=== PATIENT | male | born 1950 | race Caucasian/White ===

== ENCOUNTER 2019-06-11 07:45 | Outpatient (CLI) | payer MEDICARE, SELFPAY ==
--- NOTE | ~2019-06-11 | CT_ITS ---
EXAMINATION: CT lung screening EXAM DATE: 06/11/2019 08:36 INDICATION: Personal history of nicotine dependence. TECHNIQUE: Spiral low dose CT of the chest without contrast. Axial, coronal and sagittal images were reviewed. The dose-length product (DLP) for this examination was 254.22 mGy-cm. The exposure was t ailored according to patient size (auto mA exposure control), and iterative reconstruction (ASIR) was used as additional dose reduction technique. There is no prior study for comparison. FINDINGS: Right upper lobe 3 mm pleural-based triangular-shaped nodule, image 27. Tracheobronchial tree is patent. There is no mediastinal, hilar or axillary lymphadenopathy. There are no pleural or pericardial effusions. There is no pneumothorax. Heart normal in size. There is mild coronar y arterial calcification, arterial sclerosis. Azygos fissure. Cholelithiasis. There is thoracic sp ondylosis without osteoblastic or osteolytic lesions identified. IMPRESSION: Lung-RADS category 2, benign appearance or behavior (<1% chance of malignancy); recommend continued LDCT screening in 1 year. Reviewed, dictated and finalized at location B. ORATE SCHEDULER
--- NOTE | ~2019-06-11 | CT_ITS ---
EXAMINATION: CT soft tissue neck w con DATE: 06/11/2019 08:34 INDICATION: Base of tongue lesion. TECHNIQUE: Computed tomography (CT) of the neck was performed with 75 mL Omnipaque-350 intravenous co ntrast. Automated exposure control and iterative reconstruction technique were employed. The dose-myron gth product was 574.90 mGy-cm. COMPARISON: Neck CT 08/28/2017 FINDINGS: There is a 4 mm nodule in right lung upper lobe, likely benign. There is a 9 mm rim-enhanci ng mass in right lingual tonsil. There are no pathologically enlarged lymph nodes. There is mild plaq ue in the proximal internal carotid arteries with 0% stenosis relative to normal distal artery lumen diameters. There is mild mucosal thickening in the paranasal sinuses. The mastoid air cells are hilario l. There is mild cervical spondylosis. IMPRESSION: 1. 9 mm ring-enhancing mass in the right lingual tonsil, stable from 08/28/2017, likely benign. Reviewed, dictated and finalized at location A. ROPATHIC PHYSICIAN
== END 2019-06-11 07:46 | disposition home or self-care (01) ==
LOC: CHSIMG 07:48
PROVIDERS: PCP Internal Medicine; Visit Provider Internal Medicine
DX: Z12.2 Encounter for screening for malignant neoplasm of respiratory organs (principal); Z87.891 Personal history of nicotine dependence; K13.79 Other lesions of oral mucosa
CPT/HCPCS: 70491; G0297; Q9965

== ENCOUNTER 2019-07-02 15:24 | Outpatient (CLI) | payer MEDICARE, SELFPAY ==
--- NOTE | ~2019-07-02 | MR_ITS ---
EXAMINATION: MR lumbar spine wo con EXAM DATE: 07/02/2019 16:08 INDICATION: Low back pain into left buttock and leg with burning numbness and tingling. TECHNIQUE: Multi-sequential, multiplanar MR images of the lumbar spine were obtained without contrast . Sagittal T1, T2, T2 fat saturation images. Axial T2 weighted images. There is no prior study for comparison. FINDINGS: There is mild disc disease from L2-S1. There is 2 mm anterolisthesis of L4 on L5. The verte bral bodies are otherwise aligned. The vertebral body and disc heights are otherwise well maintained. The conus medullaris terminates at the T12-L1 level and has normal signal intensity and morphology. There are no suspicious marrow signal abnormalities. Paraspinal soft tissue is unremarkable. Level by level evaluation: L1-L2: Disc does not extend beyond the endplate margin. Facet arthropathy: Mild. Neural foraminal stenosis: No stenosis. Central canal stenosis: No stenosis. L2-L3: There is a minimal diffuse disc bulge. Facet arthropathy: Minimal. Neural foraminal stenosis: No stenosis. Central canal stenosis: No stenosis. L3-L4: There is a mild diffuse disc bulge. Facet arthropathy: Mild to moderate. Neural foraminal stenosis: No stenosis. Central canal stenosis: Mild. L4-L5: There is a mild to moderate diffuse disc bulge. Facet arthropathy: Moderate to severe . Ligamentum flavum enlargement. Neural foraminal stenosis: Mild bilateral. Central canal stenosis: Severe. L5-S1: There is a mild diffuse disc bulge. Facet arthropathy: Moderate right, mild to moderate left. Neural foraminal stenosis: No stenosis. Central canal stenosis: No stenosis. IMPRESSION: 1. L4-5 severe central canal stenosis. 2. Otherwise mild to moderate lumbar spondylosis. Reviewed, dictated and finalized at location A. L EXAMINER
== END 2019-07-02 15:25 | disposition home or self-care (01) ==
LOC: CHSIMG 15:26
PROVIDERS: PCP Internal Medicine; Visit Provider Orthopaedic Surgery
DX: M54.9 Dorsalgia, unspecified (principal)
CPT/HCPCS: 72148

== ENCOUNTER 2020-01-29 09:05 | Outpatient (CLI) | payer MEDICARE, SELFPAY ==
--- NOTE | ~2020-01-29 | CT_ITS ---
EXAMINATION: CT soft tissue neck w con DATE: 01/29/2020 09:46 INDICATION: Tonsillar mass. TECHNIQUE: Computed tomography (CT) of the neck was performed with 75 mL Omnipaque-350 intravenous co ntrast. Automated exposure control and iterative reconstruction technique were employed. The dose-myron gth product was 582.68 mGy-cm. COMPARISON: CT neck 06/11/2019, 08/28/2017 FINDINGS: There is mild scarring at the lung apices. There is a 9 mm ring-enhancing mass in the right lingual tonsil, stable from 08/28/2017. There are no pathologically enlarged lymph nodes. There is arnaldo que in the proximal internal carotid arteries with 0% stenosis relative to normal distal artery lumen diameters. There is moderate cervical spondylosis. IMPRESSION: 1. 9 mm ring-enhancing mass in the right lingual tonsil, stable from 08/28/2017, likely benign. Reviewed, dictated and finalized at location A.
[2020-01-29 09:25] LABS: Estimated Glomerular Filt Rate > 60
== END 2020-01-29 09:06 | disposition home or self-care (01) ==
LOC: CHSIMG 09:07
PROVIDERS: PCP Internal Medicine; Visit Provider Otolaryngology
DX: J35.8 Other chronic diseases of tonsils and adenoids (principal)
CPT/HCPCS: 70491; Q9965

== ENCOUNTER 2020-06-03 07:47 | Outpatient (CLI) | payer MEDICARE, SELFPAY ==
[2020-06-03 08:00] LABS: Appearance Urine Clear (Clear); Bilirubin Urine Negative (Negative); Color Urine Yellow (Yellow); Glucose Urine UA Negative (Negative); Ketones Urine Negative (Negative); Leukocyte Esterase Ur Negative (Negative); Nitrate Urine Negative (Negative); Protein Urine Negative (Negative); Specific Grav Ur >= 1.030 (1.010-1.020); Urobilinogen Urine 0.2 mg/dL (0.2-1.0); pH Urine 5.5 (5.0-8.0)
[2020-06-03 08:07] LABS: Add Urine Microscopic? YES; Bacteria Urine 1+ /hpf; Blood Urine Trace-Intact (Negative); Mucus Urine Heavy /lpf; Squamous Epithelial Cell Urine Occasional /hpf (Few); WBC Urine 0-3 /hpf (0-3)
[2020-06-03 09:11] LABS: Alanine Aminotransferase 21 U/L (16-63); Albumin Level 3.5 g/dL (3.4-5.0); Alkaline Phosphatase 74 U/L (46-116); Anion Gap 11 mmol/L (8-16); Aspartate Amino Transferase 15 U/L (15-37); Bilirubin,Total 0.5 mg/dL (0.00-1.00); Blood Urea Nitrogen 13 mg/dL (7-18); Carbon Dioxide 30 mmol/L (21-32); Chloride 105 mmol/L (98-108); Cholesterol 184 mg/dL (0-200); Creatine Kinase 48 U/L (39-308); Estimated Glomerular Filt Rate > 60; Glucose 89 mg/dL (70-99); HDL Direct 50 mg/dL (40-60); LDL Cholesterol Calculated 116 mg/dL (<130); Osmolality Calculated 301 mOsm/kg (285-295); Potassium 4.2 mmol/L (3.5-5.1); Prostate Specific Antigen 3.5 ng/mL (< OR = 4.0); Sodium 146 mmol/L (136-145); Total Protein 6.7 g/dL (6.4-8.2); Triglycerides 89 mg/dL (0-150)
[2020-06-03 09:14] LABS: Hemoglobin A1C 5.2 % (<5.7)
== END 2020-06-03 07:48 | disposition home or self-care (01) ==
PROVIDERS: PCP Internal Medicine; Visit Provider Internal Medicine
DX: E78.2 Mixed hyperlipidemia (principal); I10 Essential (primary) hypertension; R73.01 Impaired fasting glucose; R31.21 Asymptomatic microscopic hematuria; Z12.5 Encounter for screening for malignant neoplasm of prostate
CPT/HCPCS: 36415; 80053; 80061; 81001; 82550; 83036; 84153; G0103

== ENCOUNTER 2020-06-10 07:50 | Outpatient (CLI) | payer MEDICARE, SELFPAY ==
--- NOTE | ~2020-06-10 | CT_ITS ---
EXAMINATION: CT soft tissue neck w con DATE: 06/10/2020 09:33 INDICATION: Burning tonsillar pain. TECHNIQUE: Computed tomography (CT) of the neck was performed with 75 mL Omnipaque-350 intravenous co ntrast. Automated exposure control and iterative reconstruction technique were employed. The dose-myron gth product was 578.25 mGy-cm. COMPARISON: Neck CT 01/29/2020 FINDINGS: There is mild scarring at the lung apices. There are no pathologically enlarged lymph nodes . There is mild mucosal thickening in the paranasal sinuses. The mastoid air cells are normal. The ph aryngeal mucosal space is unremarkable. There is moderate cervical spondylosis. IMPRESSION: 1. No etiology for the patient's symptoms. Reviewed, dictated and finalized at location A. AND SIZER
--- NOTE | ~2020-06-10 | US_ITS ---
EXAMINATION: US retroperitoneal comp DATE: 06/10/2020 08:59 INDICATION: Hematuria TECHNIQUE: Multiple grayscale and Doppler ultrasound images of the kidneys were obtained. COMPARISON: 05/13/2018 FINDINGS: The right kidney measures 11.9 x 5.1 x 6.4 cm. The left kidney measures 12.1 x 6.6 x 7.6 cm . There appears to be a 2.2 x 1.8 x 1.9 cm hypoechoic lesion of the left kidney. The kidneys demonstr ate normal parenchymal echogenicity. There is no hydronephrosis. The bladder is normal. IMPRESSION: 1. Possible left kidney mass. Further evaluation by CT or MRI without and with contrast is recommende d. Reviewed, dictated and finalized at location A. INER FEEDER IMPRESSION: 1. Possible left kidney mass. Further evaluation by CT or MRI without and with contrast is recommended.
--- NOTE | ~2020-06-10 | CT_ITS ---
EXAMINATION:CT lung screening DATE: 06/10/2020 09:29 INDICATION: Personal history of tobacco dependence. Current smoker with 50 pack year history. TECHNIQUE: Computed tomography (CT) of the chest was performed without intravenous contrast. Automate d exposure control and iterative reconstruction technique were employed. The dose-length product (DLP ) was 279.46 mGy-cm. COMPARISON: Chest CT 06/11/2019 FINDINGS: There is mild scarring at the lung apices. There is a 3 mm nodule in right middle lobe. The re is mild atelectasis in right lower lobe. A calcified right lung nodule is consistent with old gran ulomatous disease. No pleural effusion. The heart size is normal. There are coronary artery calcifica tions. No pericardial effusion. There are gallstones in the gallbladder, which is normal in size. The re is mild chronic anterior wedging of multiple thoracic vertebral bodies. There is mild thoracic spo ndylosis. IMPRESSION: 1. Lung-RADS category 2: Benign appearance or behavior. Continue annual screening with noncontrast lo w-dose chest CT in 12 months. Reviewed, dictated and finalized at location A. MORTGAGE AGENT IMPRESSION: 1. Lung-RADS category 2: Benign appearance or behavior. Continue annual screeni ng with noncontrast low-dose chest CT in 12 months.
== END 2020-06-10 07:51 | disposition home or self-care (01) ==
LOC: CHSIMG 07:52
PROVIDERS: PCP Internal Medicine; Visit Provider Internal Medicine
DX: R31.9 Hematuria, unspecified (principal); R22.1 Localized swelling, mass and lump, neck; Z12.2 Encounter for screening for malignant neoplasm of respiratory organs; Z87.891 Personal history of nicotine dependence
CPT/HCPCS: 70491; 71271; 76770; Q9967

== ENCOUNTER 2020-06-24 08:41 | Outpatient (CLI) | payer MEDICARE, SELFPAY ==
--- NOTE | ~2020-06-24 | CT_ITS ---
EXAMINATION: CT abdomen wo/w con EXAM DATE: 06/24/2020 09:26 INDICATION: M54.5 - Low back pain hematuria 6wks ago, f/u from recent ULS. Renal lesion on ultrasound . TECHNIQUE: Spiral CT of the abdomen was performed without and then with intravenous injection of 100 mL Omnipaque 350. Axial, coronal and sagittal images were reviewed. The dose-length product (DLP) for this examination was 1763.95 mGy-cm. The exposure was tailored according to patient size (auto m A exposure control), and iterative reconstruction (ASIR) was used as additional dose reduction techni que. Correlation is made to ultrasound 06/10/2020. FINDINGS: There is no nephrolithiasis on the precontrast scan. On the postcontrast scan, the kidneys have uniform enhancement. There is no renal mass identified. The liver, spleen, adrenal glands and p ancreas are unremarkable. There are gallstones within an otherwise unremarkable gallbladder. No jackie dence of obstructive biliary disease. There is no retroperitoneal lymphadenopathy. There is mild scattered arteriosclerotic disease. There is moderate descending and sigmoid colonic diverticulosis. There is no adjacent inflammatory c hange to suggest diverticulitis. The stomach and small bowel are unremarkable. There is expected a mount of colonic stool. No free intraperitoneal gas. The heart is normal in size. There are no p ericardial or pleural effusions. The lung bases are unremarkable. There are no osteoblastic or oste olytic lesions identified. IMPRESSION: 1. Normal kidneys. 2. Colonic diverticulosis. 3. Cholelithiasis. Reviewed, dictated and finalized at location B. E ADMINISTRATION ANALYST
== END 2020-06-24 08:42 | disposition home or self-care (01) ==
PROVIDERS: PCP Internal Medicine; Visit Provider Orthopaedic Surgery
DX: M54.5 Low back pain (principal); K57.30 Diverticulosis of large intestine without perforation or abscess without bleeding; K80.20 Calculus of gallbladder without cholecystitis without obstruction
CPT/HCPCS: 74170; Q9967

== ENCOUNTER 2021-06-09 07:56 | Outpatient (CLI) | payer MEDICARE, SELFPAY ==
[2021-06-09 08:14] LABS: Add Urine Microscopic? NO; Appearance Urine Clear (Clear); Basophils Absolute Auto 0.08 K/mm3 (0.00-0.10); Basophils Percent Auto 1.4 % (0.0-1.0); Bilirubin Urine Negative (Negative); Blood Urine Negative (Negative); Color Urine Light Yellow (Yellow); Eosinophils Absolute Auto 0.28 K/mm3 (0.02-0.50); Eosinophils Percent Auto 4.8 % (1.0-6.0); Glucose Urine UA Negative (Negative); Hemoglobin 14.9 g/dL (12.4-15.3); Immature Granulocyte Absolute 0.01 K/mm3 (0.00-0.00); Immature Granulocyte Percent A 0.2 % (0.0-0.0); Ketones Urine Negative (Negative); Leukocyte Esterase Ur Negative (Negative); Lymphocytes Absolute Auto 1.14 K/mm3 (1.10-4.50); Lymphocytes Percent Auto 19.7 % (18.0-42.0); Mean Corpuscular HGB Conc 34.7 g/dL (32.0-36.0); Mean Corpuscular Hemoglobin 33.2 pg (27.0-31.0); Mean Corpuscular Volume 95.8 fL (78.0-102.0); Mean Platelet Volume 11.3 fl (8.7-11.0); Monocytes Absolute Auto 0.51 K/mm3 (0.10-0.90); Monocytes Percent Auto 8.8 % (2.0-11.0); Neutrophils Absolute Auto 3.8 K/mm3 (1.7-7.2); Neutrophils Percent Auto 65.1 % (50.0-70.0); Nitrate Urine Negative (Negative); Platelet Count Result 192 K/mm3 (150-420); Protein Urine Negative (Negative); Red Blood Count 4.49 M/mm3 (4.70-6.10); Red Cell Distribution Width 13.5 % (11.6-14.4); Specific Grav Ur 1.025 (1.010-1.020); Urobilinogen Urine 0.2 mg/dL (0.2-1.0); White Blood Count 5.8 K/mm3 (4.8-10.8)
[2021-06-09 08:46] LABS: Hemoglobin A1C 5.1 % (<5.7)
[2021-06-09 09:50] LABS: Alanine Aminotransferase 26 U/L (16-63); Albumin Level 3.5 g/dL (3.4-5.0); Alkaline Phosphatase 70 U/L (46-116); Anion Gap 9 mmol/L (8-16); Aspartate Amino Transferase 15 U/L (15-37); Bilirubin,Total 0.5 mg/dL (0.00-1.00); Blood Urea Nitrogen 16 mg/dL (7-18); Calcium 8.5 mg/dL (8.5-10.1); Carbon Dioxide 29 mmol/L (21-32); Chloride 103 mmol/L (98-108); Cholesterol 181 mg/dL (0-200); Creatine Kinase 46 U/L (39-308); Estimated Glomerular Filt Rate > 60; Glucose 91 mg/dL (70-99); HDL Direct 45 mg/dL (40-60); LDL Cholesterol Calculated 117 mg/dL (<130); Osmolality Calculated 293 mOsm/kg (285-295); Sodium 141 mmol/L (136-145); Total Protein 6.4 g/dL (6.4-8.2); Triglycerides 93 mg/dL (0-150)
== END 2021-06-09 07:57 | disposition home or self-care (01) ==
LOC: CHSLAB 07:58
PROVIDERS: PCP Internal Medicine; Visit Provider Internal Medicine
DX: E78.2 Mixed hyperlipidemia (principal); I10 Essential (primary) hypertension; R73.01 Impaired fasting glucose; R31.21 Asymptomatic microscopic hematuria; Z12.5 Encounter for screening for malignant neoplasm of prostate
CPT/HCPCS: 36415; 80053; 80061; 81003; 82550; 83036; 84153; 85025; G0103

== ENCOUNTER 2022-01-19 07:52 | Outpatient (CLI) | payer MEDICARE, SELFPAY ==
[2022-01-19 08:05] LABS: Basophils Absolute Auto 0.09 K/mm3 (0.00-0.10); Basophils Percent Auto 1.4 % (0.0-1.0); Eosinophils Absolute Auto 0.32 K/mm3 (0.02-0.50); Hematocrit 42.2 % (37.0-46.0); Hemoglobin 14.7 g/dL (12.4-15.3); Immature Granulocyte Absolute 0.02 K/mm3 (0.00-0.00); Immature Granulocyte Percent A 0.3 % (0.0-0.0); Lymphocytes Absolute Auto 1.15 K/mm3 (1.10-4.50); Lymphocytes Percent Auto 17.9 % (18.0-42.0); Mean Corpuscular HGB Conc 34.8 g/dL (32.0-36.0); Mean Corpuscular Volume 94.8 fL (78.0-102.0); Mean Platelet Volume 11.1 fl (8.7-11.0); Monocytes Absolute Auto 0.62 K/mm3 (0.10-0.90); Monocytes Percent Auto 9.6 % (2.0-11.0); Neutrophils Absolute Auto 4.2 K/mm3 (1.7-7.2); Neutrophils Percent Auto 65.8 % (50.0-70.0); Platelet Count Result 215 K/mm3 (150-420); Red Blood Count 4.45 M/mm3 (4.70-6.10); Red Cell Distribution Width 13.7 % (11.6-14.4); White Blood Count 6.4 K/mm3 (4.8-10.8)
[2022-01-19 08:06] LABS: Add Urine Microscopic? NO; Appearance Urine Clear (Clear); Bilirubin Urine Negative (Negative); Blood Urine Negative (Negative); Color Urine Yellow (Yellow); Glucose Urine UA Negative (Negative); Ketones Urine Negative (Negative); Leukocyte Esterase Ur Negative (Negative); Nitrate Urine Negative (Negative); Protein Urine Negative (Negative); Specific Grav Ur 1.025 (1.010-1.020); Urobilinogen Urine 0.2 mg/dL (0.2-1.0)
[2022-01-19 08:53] LABS: Hemoglobin A1C 5.2 % (<5.7)
[2022-01-19 08:54] LABS: Alanine Aminotransferase 23 U/L (16-63); Albumin Level 3.4 g/dL (3.4-5.0); Alkaline Phosphatase 76 U/L (46-116); Anion Gap 3 mmol/L (8-16); Aspartate Amino Transferase 16 U/L (15-37); Bilirubin,Total 0.5 mg/dL (0.00-1.00); Blood Urea Nitrogen 13 mg/dL (7-18); Calcium 8.3 mg/dL (8.5-10.1); Carbon Dioxide 29 mmol/L (21-32); Chloride 105 mmol/L (98-108); Cholesterol 174 mg/dL (0-200); Creatine Kinase 49 U/L (39-308); Estimated Glomerular Filt Rate > 60; Glucose 94 mg/dL (70-99); HDL Direct 48 mg/dL (40-60); LDL Cholesterol Calculated 110 mg/dL (<130); Osmolality Calculated 284 mOsm/kg (285-295); Potassium 3.9 mmol/L (3.5-5.1); Sodium 137 mmol/L (136-145); Total Protein 6.2 g/dL (6.4-8.2); Triglycerides 79 mg/dL (0-150)
== END 2022-01-19 07:53 | disposition home or self-care (01) ==
LOC: CHSLAB 07:55
PROVIDERS: PCP Internal Medicine; Visit Provider Internal Medicine
DX: E78.2 Mixed hyperlipidemia (principal); I10 Essential (primary) hypertension; R73.01 Impaired fasting glucose; J31.2 Chronic pharyngitis
CPT/HCPCS: 36415; 80053; 80061; 81003; 82550; 83036; 85025

== ENCOUNTER 2022-08-16 07:59 | Outpatient (CLI) | payer MEDICARE, SELFPAY ==
[2022-08-16 08:16] LABS: Appearance Urine Clear (Clear); Basophils Absolute Auto 0.09 K/mm3 (0.00-0.10); Basophils Percent Auto 1.4 % (0.0-1.0); Bilirubin Urine Negative (Negative); Blood Urine Negative (Negative); Color Urine Yellow (Yellow); Eosinophils Absolute Auto 0.29 K/mm3 (0.02-0.50); Eosinophils Percent Auto 4.5 % (1.0-6.0); Glucose Urine UA Negative (Negative); Hematocrit 43.6 % (37.0-46.0); Hemoglobin 14.8 g/dL (12.4-15.3); Immature Granulocyte Absolute 0.02 K/mm3 (0.00-0.00); Immature Granulocyte Percent A 0.3 % (0.0-0.0); Ketones Urine Negative (Negative); Leukocyte Esterase Ur Negative (Negative); Lymphocytes Absolute Auto 1.13 K/mm3 (1.10-4.50); Lymphocytes Percent Auto 17.5 % (18.0-42.0); Mean Corpuscular HGB Conc 33.9 g/dL (32.0-36.0); Mean Corpuscular Hemoglobin 32.5 pg (27.0-31.0); Mean Corpuscular Volume 95.6 fL (78.0-102.0); Mean Platelet Volume 11.3 fl (8.7-11.0); Monocytes Absolute Auto 0.52 K/mm3 (0.10-0.90); Monocytes Percent Auto 8.1 % (2.0-11.0); Neutrophils Absolute Auto 4.4 K/mm3 (1.7-7.2); Neutrophils Percent Auto 68.2 % (50.0-70.0); Nitrate Urine Negative (Negative); Platelet Count Result 202 K/mm3 (150-420); Protein Urine Negative (Negative); Red Blood Count 4.56 M/mm3 (4.70-6.10); Red Cell Distribution Width 13.7 % (11.6-14.4); Specific Grav Ur 1.025 (1.010-1.020); Urobilinogen Urine 0.2 mg/dL (0.2-1.0); White Blood Count 6.5 K/mm3 (4.8-10.8); pH Urine 5.5 (5.0-8.0)
[2022-08-16 08:21] LABS: Add Urine Microscopic? NO
[2022-08-16 08:25] LABS: Hemoglobin A1C 5.4 % (<5.7)
[2022-08-16 09:01] LABS: Alanine Aminotransferase 23 U/L (16-63); Albumin Level 3.3 g/dL (3.4-5.0); Alkaline Phosphatase 72 U/L (46-116); Anion Gap 10 mmol/L (8-16); Aspartate Amino Transferase 15 U/L (15-37); Bilirubin,Total 0.4 mg/dL (0.00-1.00); Blood Urea Nitrogen 17 mg/dL (7-18); Calcium 8.7 mg/dL (8.5-10.1); Carbon Dioxide 28 mmol/L (21-32); Chloride 107 mmol/L (98-108); Cholesterol 197 mg/dL (0-200); Creatine Kinase 39 U/L (39-308); Estimated Glomerular Filt Rate > 60; Glucose 96 mg/dL (70-99); HDL Direct 50 mg/dL (40-60); LDL Cholesterol Calculated 128 mg/dL (<130); Osmolality Calculated 301 mOsm/kg (285-295); Prostate Specific Antigen 2.1 ng/mL (< OR = 4.0); Sodium 145 mmol/L (136-145); Total Protein 6.5 g/dL (6.4-8.2); Triglycerides 93 mg/dL (0-150)
== END 2022-08-16 08:00 | disposition home or self-care (01) ==
LOC: CHSLAB 08:01
PROVIDERS: PCP Internal Medicine; Visit Provider Internal Medicine
DX: I10 Essential (primary) hypertension (principal); E78.2 Mixed hyperlipidemia; R73.01 Impaired fasting glucose; R31.21 Asymptomatic microscopic hematuria; Z12.5 Encounter for screening for malignant neoplasm of prostate
CPT/HCPCS: 36415; 80053; 80061; 81003; 82550; 83036; 84153; 85025; G0103

== ENCOUNTER 2022-11-09 07:53 | Outpatient (CLI) | payer MEDICARE, SELFPAY ==
[2022-11-09 08:53] LABS: Alanine Aminotransferase 28 U/L (16-63); Albumin Level 3.5 g/dL (3.4-5.0); Alkaline Phosphatase 74 U/L (46-116); Anion Gap 11 mmol/L (8-16); Aspartate Amino Transferase 16 U/L (15-37); Bilirubin,Total 0.5 mg/dL (0.00-1.00); Blood Urea Nitrogen 22 mg/dL (7-18); Calcium 8.9 mg/dL (8.5-10.1); Carbon Dioxide 27 mmol/L (21-32); Chloride 104 mmol/L (98-108); Estimated Glomerular Filt Rate > 60; Glucose 132 mg/dL (70-99); Osmolality Calculated 299 mOsm/kg (285-295); Potassium 3.9 mmol/L (3.5-5.1); Sodium 142 mmol/L (136-145); Total Protein 6.6 g/dL (6.4-8.2)
== END 2022-11-09 07:54 | disposition home or self-care (01) ==
PROVIDERS: PCP Internal Medicine; Visit Provider Internal Medicine
DX: I10 Essential (primary) hypertension (principal)
CPT/HCPCS: 36415; 80053

== ENCOUNTER 2023-01-24 08:04 | Outpatient (CLI) | payer MEDICARE, SELFPAY ==
[2023-01-24 09:02] LABS: Anion Gap 11 mmol/L (8-16); Blood Urea Nitrogen 14 mg/dL (7-18); Carbon Dioxide 26 mmol/L (21-32); Chloride 105 mmol/L (98-108); Estimated Glomerular Filt Rate > 60; Glucose 94 mg/dL (70-99); Osmolality Calculated 294 mOsm/kg (285-295); Potassium 4.1 mmol/L (3.5-5.1); Sodium 142 mmol/L (136-145)
== END 2023-01-24 08:05 | disposition home or self-care (01) ==
LOC: CHSLAB 08:05
PROVIDERS: PCP Internal Medicine; Visit Provider Internal Medicine
DX: I10 Essential (primary) hypertension (principal)
CPT/HCPCS: 36415; 80048

== ENCOUNTER 2023-07-18 07:40 | Outpatient (CLI) | payer MEDICARE, SELFPAY ==
[2023-07-18 08:04] LABS: Appearance Urine Clear (Clear); Basophils Absolute Auto 0.09 K/mm3 (0.00-0.10); Basophils Percent Auto 1.3 % (0.0-1.0); Bilirubin Urine Negative (Negative); Blood Urine Negative (Negative); Color Urine Yellow (Yellow); Glucose Urine UA Negative (Negative); Hemoglobin 14.9 g/dL (12.4-15.3); Immature Granulocyte Absolute 0.02 K/mm3 (0.00-0.00); Immature Granulocyte Percent A 0.3 % (0.0-0.0); Ketones Urine Negative (Negative); Leukocyte Esterase Ur Negative LEU/UL (Negative); Lymphocytes Absolute Auto 1.06 K/mm3 (1.10-4.50); Lymphocytes Percent Auto 15.8 % (18.0-42.0); Mean Corpuscular HGB Conc 33.9 g/dL (32-36); Mean Corpuscular Hemoglobin 32.2 pg (27.0-31.0); Mean Platelet Volume 10.8 fl (8.7-11.0); Monocytes Absolute Auto 0.59 K/mm3 (0.10-0.90); Monocytes Percent Auto 8.8 % (2.0-11.0); Neutrophils Absolute Auto 4.53 K/mm3 (1.70-7.20); Neutrophils Percent Auto 67.8 % (50.0-70.0); Nitrate Urine Negative (Negative); Platelet Count Result 221 K/mm3 (150-420); Protein Urine Negative (Negative); Red Blood Count 4.63 M/mm3 (4.70-6.10); Red Cell Distribution Width 14.1 % (11.6-14.4); Specific Grav Ur 1.025 (1.010-1.020); Urobilinogen Urine 0.2 mg/dL (0.2-1.0); White Blood Count 6.7 K/mm3 (4.8-10.8)
[2023-07-18 08:13] LABS: Add Urine Microscopic? NO
[2023-07-18 08:54] LABS: Alanine Aminotransferase 27 U/L (16-63); Albumin Level 3.3 g/dL (3.4-5.0); Alkaline Phosphatase 61 U/L (46-116); Anion Gap 7 mmol/L (8-16); Aspartate Amino Transferase 17 U/L (15-37); Bilirubin,Total 0.5 mg/dL (0.00-1.00); Blood Urea Nitrogen 15 mg/dL (7-18); Calcium 8.6 mg/dL (8.5-10.1); Carbon Dioxide 30 mmol/L (21-32); Chloride 108 mmol/L (98-108); Cholesterol 191 mg/dL (0-200); Creatine Kinase 49 U/L (39-308); Estimated Glomerular Filt Rate > 60; Glucose 92 mg/dL (70-99); HDL Direct 56 mg/dL (40-60); LDL Cholesterol Calculated 117 mg/dL (<130); Osmolality Calculated 300 mOsm/kg (285-295); Potassium 3.8 mmol/L (3.5-5.1); Sodium 145 mmol/L (136-145); Total Protein 6.3 g/dL (6.4-8.2); Triglycerides 90 mg/dL (0-150)
== END 2023-07-18 07:41 | disposition home or self-care (01) ==
LOC: CHSLAB 07:42
PROVIDERS: PCP Internal Medicine; Visit Provider Internal Medicine
DX: N39.0 Urinary tract infection, site not specified (principal); I10 Essential (primary) hypertension; R73.01 Impaired fasting glucose; E78.5 Hyperlipidemia, unspecified
CPT/HCPCS: 36415; 80053; 80061; 81003; 82550; 83036; 85025

== ENCOUNTER 2024-03-25 07:59 | Outpatient (CLI) | payer MEDICARE, SELFPAY ==
[2024-03-25 08:20] LABS: Hematocrit 42.3 % (37.0-46.0); Hemoglobin 14.8 g/dL (12.4-15.3); Mean Corpuscular Hemoglobin 32.5 pg (27.0-31.0); Mean Corpuscular Volume 92.8 fL (78.0-102.0); Mean Platelet Volume 10.8 fl (8.7-11.0); Platelet Count Result 207 K/mm3 (150-420); Red Blood Count 4.56 M/mm3 (4.70-6.10); Red Cell Distribution Width 13.6 % (11.6-14.4); White Blood Count 6.2 K/mm3 (4.8-10.8)
[2024-03-25 08:27] LABS: Add Urine Microscopic? NO; Appearance Urine Clear (Clear); Bilirubin Urine Negative (Negative); Blood Urine Negative (Negative); Color Urine Light Yellow (Yellow); Glucose Urine UA Negative (Negative); Ketones Urine Negative (Negative); Leukocyte Esterase Ur Negative (Negative); Nitrate Urine Negative (Negative); Protein Urine Negative (Negative); Specific Grav Ur 1.025 (1.010-1.020); Urobilinogen Urine 0.2 mg/dL (0.2-1.0); pH Urine 5.5 (5.0-8.0)
[2024-03-25 10:00] LABS: Alanine Aminotransferase 24 U/L (16-63); Albumin Level 3.3 g/dL (3.4-5.0); Alkaline Phosphatase 58 U/L (46-116); Anion Gap 6 mmol/L (4-12); Aspartate Amino Transferase 14 U/L (15-37); Bilirubin,Total 0.6 mg/dL (0.00-1.00); Blood Urea Nitrogen 19 mg/dL (7-18); Calcium 8.8 mg/dL (8.5-10.1); Carbon Dioxide 31 mmol/L (21-32); Chloride 105 mmol/L (98-108); Cholesterol 186 mg/dL (0-200); Estimated Glomerular Filt Rate > 60; Glucose 91 mg/dL (70-99); HDL Direct 53 mg/dL (40-60); LDL Cholesterol Calculated 114 mg/dL (<130); Osmolality Calculated 296 mOsm/kg (285-295); Potassium 3.9 mmol/L (3.5-5.1); Prostate Specific Antigen 1.9 ng/mL (< OR = 4.0); Sodium 142 mmol/L (136-145); Total Protein 6.2 g/dL (6.4-8.2); Triglycerides 97 mg/dL (0-150)
[2024-03-25 10:08] LABS: Hemoglobin A1C 5.1 % (<5.7)
== END 2024-03-25 08:00 | disposition home or self-care (01) ==
PROVIDERS: PCP Internal Medicine; Visit Provider Internal Medicine
DX: R31.21 Asymptomatic microscopic hematuria (principal); I10 Essential (primary) hypertension; R73.01 Impaired fasting glucose; E78.2 Mixed hyperlipidemia; K80.20 Calculus of gallbladder without cholecystitis without obstruction; Z12.5 Encounter for screening for malignant neoplasm of prostate
CPT/HCPCS: 36415; 80053; 80061; 81003; 83036; 84153; 85027; G0103

== ENCOUNTER 2024-07-04 10:25 | Outpatient (CLI) | payer MEDICARE, SELFPAY ==
[2024-07-04 10:42] LABS: Basophils Percent Auto 1.4 % (0.0-1.0); Eosinophils Absolute Auto 0.42 K/mm3 (0.02-0.50); Eosinophils Percent Auto 5.8 % (1.0-6.0); Hematocrit 44.5 % (37.0-46.0); Hemoglobin 14.6 g/dL (12.4-15.3); Immature Granulocyte Absolute 0.02 K/mm3 (0.00-0.00); Immature Granulocyte Percent A 0.3 % (0.0-0.0); Lymphocytes Absolute Auto 1.32 K/mm3 (1.10-4.50); Lymphocytes Percent Auto 18.2 % (18.0-42.0); Mean Corpuscular HGB Conc 32.8 g/dL (32-36); Mean Corpuscular Hemoglobin 31.7 pg (27.0-31.0); Mean Corpuscular Volume 96.7 fL (78.0-102.0); Mean Platelet Volume 11.8 fl (8.7-11.0); Monocytes Absolute Auto 0.68 K/mm3 (0.10-0.90); Monocytes Percent Auto 9.4 % (2.0-11.0); Neutrophils Absolute Auto 4.72 K/mm3 (1.70-7.20); Neutrophils Percent Auto 64.9 % (50.0-70.0); Platelet Count Result 200 K/mm3 (150-420); Red Cell Distribution Width 13.7 % (11.6-14.4); White Blood Count 7.3 K/mm3 (4.8-10.8)
--- OUTSIDE RECORDS SUMMARY | 2024-07-04 11:21 | XMS_ITS | Referral Summary ---
Author Organization [facility] [address] [place] [address] Care Team Providers Care Supercalender Operator Name Role Phone Tracie Persaud MD Primary Care Provider [phone] Allergies No known active allergies Medications amLODIPine (NORVASC) 10 mg tablet 05/29/2019 Active carvediloL (COREG) 6.25 mg tablet 05/29/2019 Acti ve sertraline (ZOLOFT) 100 mg tablet 05/05/2019 Active triamterene-hydroC HLOROthiazide 37.5-25 mg per tablet 05/29/2019 Active Active Problems No known active problems Social History Tobacco Use Types Packs/Day Years Used Date Smoking Tobacco: Some Days Smokeless Tobacco: Never Alcohol Use Standard Drinks/Week Comments Yes 0 (1 standard drink = 0.6 oz pur e alcohol) Personal Safety Answer Date Recorded Getting School Help Needed Not on file 07/14 Sex and Gender Information Value Date Recorded Sex Assigned at Not on file Legal Sex Male 7:40 AM CDT Gender Identity Not on file Sexual Orientation Not on file Last Filed Vital Signs Vital Sign Reading Time Taken Comments Blood Pressure 161/73 2020 11:03 AM SPANISH TEACHER Pulse 54 2020 11:03 AM SPANISH TEACHER Temperature 37 C (98.6 F) 03/30/2020 3:27 PM SPANISH TEACHER Respiratory Rate 17 07/03/2019 8:33 AM SPANISH TEACHER Oxygen Saturation 95% 2020 11:03 AM SPANISH TEACHER Inhaled Oxygen Concentration - - Weight 104.3 kg (230 lb) 03/30/2020 3:27 PM SPANISH TEACHER Height 182.9 cm (6') 03/30/2020 3:27 PM SPANISH TEACHER Body Mass Index 31.19 03/30/2020 3:27 PM SPANISH TEACHER Plan of Treatment Not on file Insurance MEDICARE [facility] MEDICARE [facility] Care Teams Supercalender Operator Relationship Specialty Start Date End Date Tracie Persaud MD [address] [place] [address] PCP - General Internal Medicine 07/03/19
--- OUTSIDE RECORDS SUMMARY | 2024-07-04 11:21 | XMS_ITS | Clinical Summary ---
Author Organization [facility] [address] [place] [address] Care Team Providers Care Csr Technician Name Role Phone Tracie Persaud MD Primary Care Provider Allergies No known active allergies Medications amLODIPine (NORVASC) 10 mg tablet 05/29/2019 Active carvediloL (COREG) 6.25 mg tablet 05/29/2019 Acti ve sertraline (ZOLOFT) 100 mg tablet 05/05/2019 Active triamterene-hydroC HLOROthiazide 37.5-25 mg per tablet 05/29/2019 Active Active Problems No known active problems Surgical History Surgery Date Site/Laterality Comments HERNIA REPAIR KNEE ARTHROSCOPY TONGUE BIOPSY / EXCISION Medical History Medical History Date Comments Anxiety Hypertension Sleep apnea Family History Medical History Relation Name Comments Cancer Father Cancer Mother Relation Name Status Comments Father Mother Social History Tobacco Use Types Packs/Day Years [...] on file Sexual Orientation Not on file Obstetrics History Last Filed Vital Signs Vital Sign Reading Time Taken Comments Blood Pressure 161/73 2020 11:03 AM CUSTOMER RELATIONS COORDINATOR Pulse 54 2020 11:03 AM CUSTOMER RELATIONS COORDINATOR Temperature 37 C (98.6 F) 03/30/2020 3:27 PM CUSTOMER RELATIONS COORDINATOR Respiratory Rate 17 07/03/2019 8:33 AM CUSTOMER RELATIONS COORDINATOR Oxygen Saturation 95% 2020 11:03 AM CUSTOMER RELATIONS COORDINATOR Inhaled Oxygen Concentration - - Weight 104.3 kg (230 lb) 03/30/2020 3:27 PM CUSTOMER RELATIONS COORDINATOR Height 182.9 cm (6') 03/30/2020 3:27 PM CUSTOMER RELATIONS COORDINATOR Body Mass Index 31.19 03/30/2020 3:27 PM CUSTOMER RELATIONS COORDINATOR Plan of Treatment Not on file Insurance MEDICARE [facility] MEDICARE [employer] Care Teams Csr Technician Relationship Specialty Start Date End Date Tracie Pesraud MD [address] [place] [address] PCP - General Internal Medicine 07/03/19
[2024-07-04 11:48] LABS: Anion Gap 6 mmol/L (4-12); Blood Urea Nitrogen 22 mg/dL (7-18); Calcium 9.1 mg/dL (8.5-10.1); Carbon Dioxide 30 mmol/L (21-32); Chloride 108 mmol/L (98-108); Estimated Glomerular Filt Rate 60; Free T4 Free Thyroxine 1.01 ng/dL (0.76-1.46); Glucose 91 mg/dL (70-99); Iron 92 ug/dL (65-175); Magnesium 2.3 mg/dL (1.8-2.4); Osmolality Calculated 301 mOsm/kg (285-295); Potassium 4.2 mmol/L (3.5-5.1); Sodium 144 mmol/L (136-145); Thyroid Stimulating Hormone 1.66 uIU/mL (0.36-3.74)
[2024-07-04 11:51] LABS: Free T3 2.72 pg/mL (2.18-3.98)
[2024-07-04 16:52] LABS: Ferritin 326 ng/mL (26-388)
== END 2024-07-04 10:26 | disposition home or self-care (01) ==
PROVIDERS: PCP Internal Medicine; Visit Provider Internal Medicine
DX: R00.2 Palpitations (principal); D64.9 Anemia, unspecified
CPT/HCPCS: 36415; 80048; 82728; 83540; 83735; 84439; 84443; 84481; 85025

== ENCOUNTER 2024-07-28 07:48 | Outpatient (CLI) | payer MEDICARE, SELFPAY ==
--- OUTSIDE RECORDS SUMMARY | 2024-07-28 07:53 | XMS_ITS | Clinical Summary ---
Author Organization [facility] [address] [place] [address] Care Team Providers Care Transportation Specialist Name Role Phone Tracie Persaud MD Primary Care Provider [phone] Allergies No known active allergies Medications amLODIPine [...] Comments Blood Pressure 161/73 2020 11:03 AM CURING ROOM SUPERVISOR Pulse 54 2020 11:03 AM CURING ROOM SUPERVISOR Temperature 37 C (98.6 F) 03/30/2020 3:27 PM CURING ROOM SUPERVISOR Respiratory Rate 17 07/03/2019 8:33 AM CURING ROOM SUPERVISOR Oxygen Saturation 95% 2020 11:03 AM CURING ROOM SUPERVISOR Inhaled Oxygen Concentration - - Weight 104.3 kg (230 lb) 03/30/2020 3:27 PM CURING ROOM SUPERVISOR Height 182.9 cm (6') 03/30/2020 3:27 PM CURING ROOM SUPERVISOR Body Mass Index 31.19 03/30/2020 3:27 PM CURING ROOM SUPERVISOR Plan of Treatment Not on file Insurance MEDICARE [facility] MEDICARE [employer] Care Teams Transportation Specialist Relationship Specialty Start Date End Date Tracie Persaud MD [address] [place] [address] PCP - General Internal Medicine 07/03/19
--- OUTSIDE RECORDS SUMMARY | 2024-07-28 07:53 | XMS_ITS | Referral Summary ---
Author Organization [facility] [address] [place] [address] Care Team Providers Care Clinical Partner Name Role Phone Tracie Persaud MD Primary Care Provider [phone] Allergies No known active allergies Medications amLODIPine [...] Comments Blood Pressure 161/73 2020 11:03 AM NUB CARD TENDER Pulse 54 2020 11:03 AM NUB CARD TENDER Temperature 37 C (98.6 F) 03/30/2020 3:27 PM NUB CARD TENDER Respiratory Rate 17 07/03/2019 8:33 AM NUB CARD TENDER Oxygen Saturation 95% 2020 11:03 AM NUB CARD TENDER Inhaled Oxygen Concentration - - Weight 104.3 kg (230 lb) 03/30/2020 3:27 PM NUB CARD TENDER Height 182.9 cm (6') 03/30/2020 3:27 PM NUB CARD TENDER Body Mass Index 31.19 03/30/2020 3:27 PM NUB CARD TENDER Plan of Treatment Not on file Insurance MEDICARE [facility] MEDICARE [facility] Care Teams Clinical Partner Relationship Specialty Start Date End Date Tracie Persaud MD [address] [place] [address] PCP - General Internal Medicine 07/03/19
--- NOTE | 2024-07-28 08:03 | EST_ITS ---
Patient Info Name: Benedicto Payton Age: 74 years : 1950 Gender: Male Ht: 71 in Wt: 243 lbs BSA: 2.39 m2 HR: 55 bpm BP: 147 / 69 mmHg Heart Rhythm: Left Bundle Branch Block, Bradycardia Technical Quality: Good Exam Date: 07/28/2024 9:30 AM Exam Location: Echo Lab Patient Status: Outpatient Admit Date: 07/28/2024 Staff Ordering Physician: Tracie Persaud MD Attending Provider: Tracie Persaud MD Exam Type: CA stress juany w NM Study Info A pharmacological stress test was performed. History/Risk Factors Hypertension: Yes Dyslipidemia: Yes Summary 1. 1. Inconclusive lexiscan stress test for ischemic ST changes by ECG criteria due to baseline LBBB. 2. 2. Baseline hypertension. 3. 3. Nuclear scan to follow and will be reported separately. Please correlate with it. Protocol: LEXISCAN Stress ECG Details Stage: REST Duration (min): 1 min : 30 sec HR (bpm): 56 SBP (mmHg): 147 DBP (mmHg): 69 Stage: REST Duration (min): 7 min : 7 sec HR (bpm): 54 SBP (mmHg): 147 DBP (mmHg): 69 Stage: STAGE 1 Duration (min): 0 min : 27 sec HR (bpm): 54 SBP (mmHg): 147 DBP (mmHg): 69 Stage: RECOVERY Duration (min): 0 min : 32 sec HR (bpm): 56 SBP (mmHg): 147 DBP (mmHg): 69 Stage: RECOVERY Duration (min): 1 min : 32 sec HR (bpm): 63 SBP (mmHg): 147 DBP (mmHg): 69 Stage: RECOVERY Duration (min): 2 min : 32 sec HR (bpm): 60 SBP (mmHg): 147 DBP (mmHg): 69 Stage: RECOVERY Duration (min): 3 min : 32 sec HR (bpm): 60 SBP (mmHg): 141 DBP (mmHg): 67 Stage: RECOVERY Duration (min): 4 min : 32 sec HR (bpm): 59 SBP (mmHg): 151 DBP (mmHg): 68 Stage: RECOVERY Duration (min): 5 min : 32 sec HR (bpm): 59 SBP (mmHg): 130 DBP (mmHg): 53 Stage: RECOVERY Duration (min): 6 min : 18 sec HR (bpm): 59 SBP (mmHg): 145 DBP (mmHg): 68 Rest HR: 54 bpm Peak HR: 63 bpm Rest Sys BP: 147 mmHg Peak Sys BP: 151 mmHg Max Pred HR: 144 bpm % Max Pred HR: 44 % Target HR: 122 bpm Max RPP: 9,513 bpm*mmHg BP Response: Normal blood pressure response Termination Reason: Completed Protocol Cardiac Symptoms: None Total Time: 0 min : 27 sec Rest Helm BP: 69 mmHg Peak Helm BP: 68 mmHg Total Dose: 0.4 mg Resting ECG Sinus bradycardia with LBBB. Stress ECG No abnormal ST/T wave changes. Arrhythmias Frequent PVCs. Report Signatures
--- NOTE | 2024-07-28 13:33 | WPDCARIOSTRE ---
Nuclear Stress Test INDICATIONS Indications: Chest pain PROCEDURE Procedure Performed: Myocardial Perf Spect-Multi Procedure: Patient underwent a lexiscan stress test and immediately injected with 32.9 mCi of cardiolyte. Multiple tomographic images were obtained. These are of good quality. There is a moderate size, moderate severity inferoseptal and apical perfusion defects with stress imaging. A separate resting images were obtained after patient was injected with 10.3 mCi of cardiolyte. Multiple tomographic images were obtained. These are of good quality. There is a moderate size, moderate severity inferoseptal and apical perfusion defects with rest imaging. CONCLUSION Conclusion: 1. Myocardial perfusion imaging demonstrating a fixed moderate size inferoseptal and apical perfusion defects suggestive of prior myocardial infarct or scar. 2. No evidence of reversible ischemia. 3. Left ventriculogram demonstrates mild systolic dysfunction with EF 49% and apical hypokinesis. 3. TID score 1.04 is normal.
== END 2024-07-28 07:49 | disposition home or self-care (01) ==
LOC: CHSCARD 07:50
PROVIDERS: PCP Internal Medicine; Visit Provider Internal Medicine
DX: R00.2 Palpitations (principal); R07.89 Other chest pain
CPT/HCPCS: 78452; 93017; 93246; A9502; J2785

== ENCOUNTER 2024-07-29 12:58 | Outpatient (CLI) | payer MEDICARE, SELFPAY ==
--- NOTE | 2024-07-29 13:03 | ECHO_ITS ---
Patient Info Name: Benedicto Payton Age: 74 years : 1950 Gender: Male Ht: 72 in Wt: 230 lbs BSA: 2.33 m2 HR: 54 bpm BP: 142 / 62 mmHg Heart Rhythm: Sinus Arrhythmia Technical Quality: Fair Exam Date: 07/29/2024 12:13 PM Exam Location: Echo Lab Patient Status: Outpatient Admit Date: 07/29/2024 Staff Ordering Physician: Tracie Persadu MD Oil Heater Installer: Judi Womack RDCS Attending Provider: Tracie Persaud MD Exam Type: CA echo doppler color flow Study Info Indications - Atypical chest pain - Palpitations Complete two-dimensional, color flow and Doppler transthoracic echocardiogram is performed. Summary 1. Complete two-dimensional, color flow and Doppler transthoracic echocardiogram is performed. 2. Left ventricular chamber dimension is normal. 3. Left ventricular systolic function is normal, estimated at 55-60%. 4. There is mild concentric increased left ventricular wall thickness. 5. The left ventricular diastolic function is grade I diastolic dysfunction. 6. E/e' 13 is mildly elevated. 7. Left atrial chamber dimension is moderately enlarged. 8. Right atrial chamber dimension is moderately enlarged. 9. There is mild aortic valve sclerosis. 10. There is moderate aortic valve regurgitation. 11. The mitral valve has moderately calcified annulus. 12. No pulmonary hypertension, estimated pulmonary arterial systolic pressure is 37 mmHg. Left Ventricle E/e' 13 is mildly elevated. Left ventricular chamber dimension is normal. Left ventricular systolic function is normal, estimated at 55-60%. There is mild concentric increased left ventricular wall thickness. The left ventricular diastolic function is grade I diastolic dysfunction. Right Ventricle Right ventricular systolic function is normal and with normal TAPSE 2.3 cm. Right ventricular chamber dimension is normal. Left Atria Left atrial chamber dimension is moderately enlarged. Right Atria Right atrial chamber dimension is moderately enlarged. Aortic Valve The aortic valve is trileaflet. There is mild aortic valve sclerosis. There is no aortic valve stenosis. There is moderate aortic valve regurgitation. Pulmonic Valve There is no pulmonic regurgitation. Mitral Valve The mitral valve has moderately calcified annulus. There is no mitral valve stenosis. There is no mitral valve regurgitation. Tricuspid Valve There is no tricuspid valve regurgitation. No pulmonary hypertension, estimated pulmonary arterial systolic pressure is 37 mmHg. Pericardium/Pleural There is no pericardial effusion. Inferior Vena Cava Normal inferior vena cava with >50% collapse upon inspiration consistent with normal right atrial pressure, 5 mmHg. Aorta The aortic root size at the sinus of Valsalva is normal. Left Ventricular Outflow Tract Name Value Normal LVOT 2D LVOT Diameter 2.2 cm LVOT Doppler LVOT Peak Velocity 142 cm/s LVOT Peak Gradient 8 mmHg LVOT Mean Gradient 0 mmHg LVOT VTI 38 cm LVOT VTI/AV VTI Ratio 0.9 LVOT Stroke Volume 141 ml Pulmonic Valve Name Value Normal RVOT Doppler RVOT Peak Gradient 6 mmHg PV Doppler PV Peak Velocity 121 cm/s PV Peak Gradient 6 mmHg Mitral Valve Name Value Normal MV Doppler MV Decel [place] 254 cm/s2 MV PHT 101 ms MV Area (PHT) 2.2 cm2 4.0-5.0 MV Diastolic Function MV E Peak Velocity 88 cm/s MV A Peak Velocity 112 cm/s MV E/A 0.8 MV Decel Time 348 ms Tricuspid Valve Name Value Normal TV Regurgitation Doppler TR Peak Velocity 282 cm/s TR Peak Gradient 32 mmHg Estimated PAP/RSVP RA Pressure 5 mmHg <=5 PA Systolic Pressure 37 mmHg <36 RV Systolic Pressure 37 mmHg <36 Aortic Valve Name Value Normal AV Doppler AV Peak Velocity 158 cm/s AV Peak Gradient 10 mmHg AV Mean Gradient 6 mmHg AV VTI 44 cm AV Area (Cont Eq VTI) 3.2 cm2 >=3.0 AV Area (Cont Eq Juan) 3.3 cm2 AV V1/V2 Ratio 0.90 AV Regurgitation 2D LVOT Area 3.7 cm2 AV Regurgitation Doppler AR Decel Time 2,019 ms AR Decel [place] 153 cm/s2 AR PHT 585 ms Ventricles Name Value Normal LV Dimensions 2D/MM IVS Diastolic Thickness (2D) 1.0 cm 0.6-1.0 LVID Diastole (2D) 4.2 cm 4.2-5.8 LVIW Diastolic Thickness (2D) 0.9 cm 0.6-1.0 LVID Systole (2D) 2.9 cm 2.5-4.0 LVOT Diameter 2.2 cm LV Mass (2D Cubed) 125.46 g 88.00-224.00 LV Mass Index (2D Cubed) 54 g/m2 49-115 Relative Wall Thickness (2D) 0.41 LV Fractional Shortening/Ejection Fraction 2D/MM LV Fractional Shortening (2D) 30 % 25-43 LV EF (2D Teicholz) 57 % 52-72 LV Diastolic Volume (4C MOD) 186 ml LV EF (4C MOD) 52 % LV Diastolic Volume (2C MOD) 189 ml LV EF (2C MOD) 56 % LV Diastolic Volume (BP MOD) 194 ml 62-150 LV Diastolic Volume Index (BP MOD) 83 ml/m2 34-74 LV Systolic Volume (BP MOD) 88 ml 21-61 LV Systolic Volume Index (BP MOD) 38 ml/m2 11-31 LV EF (BP MOD) 55 % 52-72 LV Diastolic Length (4C) 9.5 cm LV Systolic Length (4C) 8.1 cm LV Stroke Volume (4C MOD) 97 ml Atria Name Value Normal LA Dimensions LA Volume (4C A-L) 84 ml LA Volume (BP A-L) 84 ml RA Dimensions RA Area (4C) 33.7 cm2 <=18.0 Report Signatures
--- OUTSIDE RECORDS SUMMARY | 2024-07-29 14:07 | XMS_ITS | Clinical Summary ---
Author Organization [facility] [address] [employer] Address [address] [place] [address] Care Team Providers Care Locket Maker Name Role Phone Tracie Persaud MD Primary [...] Comments Blood Pressure 161/73 2020 11:03 AM RELAY MECHANIC Pulse 54 2020 11:03 AM RELAY MECHANIC Temperature 37 C (98.6 F) 03/30/2020 3:27 PM RELAY MECHANIC Respiratory Rate 17 07/03/2019 8:33 AM RELAY MECHANIC Oxygen Saturation 95% 2020 11:03 AM RELAY MECHANIC Inhaled Oxygen Concentration - - Weight 104.3 kg (230 lb) 03/30/2020 3:27 PM RELAY MECHANIC Height 182.9 cm (6') 03/30/2020 3:27 PM RELAY MECHANIC Body Mass Index 31.19 03/30/2020 3:27 PM RELAY MECHANIC Plan of Treatment Not on file Insurance MEDICARE [facility] MEDICARE [employer] Care Teams Locket Maker Relationship Specialty Start Date End Date Tracie Persaud MD [address] [place] [address] PCP - General Internal Medicine 07/03/19
--- OUTSIDE RECORDS SUMMARY | 2024-07-29 14:07 | XMS_ITS | Referral Summary ---
Author Organization [facility] [address] [employer] Address [address] [place] [address] Care Team Providers Care Sales Planning Coordinator Name Role Phone Tracie Persaud MD Primary [...] Comments Blood Pressure 161/73 2020 11:03 AM REPAIRER WOOD FURNITURE Pulse 54 2020 11:03 AM REPAIRER WOOD FURNITURE Temperature 37 C (98.6 F) 03/30/2020 3:27 PM REPAIRER WOOD FURNITURE Respiratory Rate 17 07/03/2019 8:33 AM REPAIRER WOOD FURNITURE Oxygen Saturation 95% 2020 11:03 AM REPAIRER WOOD FURNITURE Inhaled Oxygen Concentration - - Weight 104.3 kg (230 lb) 03/30/2020 3:27 PM REPAIRER WOOD FURNITURE Height 182.9 cm (6') 03/30/2020 3:27 PM REPAIRER WOOD FURNITURE Body Mass Index 31.19 03/30/2020 3:27 PM REPAIRER WOOD FURNITURE Plan of Treatment Not on file Insurance MEDICARE [facility] MEDICARE [facility] Care Teams Sales Planning Coordinator Relationship Specialty Start Date End Date Tracie Persaud MD [address] [place] [address] PCP - General Internal Medicine 07/03/19
== END 2024-07-29 12:59 | disposition home or self-care (01) ==
PROVIDERS: PCP Internal Medicine; Visit Provider Internal Medicine
DX: R00.2 Palpitations (principal); R07.89 Other chest pain; I35.1 Nonrheumatic aortic (valve) insufficiency
CPT/HCPCS: 93306

== ENCOUNTER 2024-11-06 07:48 | Outpatient (CLI) | payer MEDICARE, SELFPAY ==
--- OUTSIDE RECORDS SUMMARY | 2024-11-06 07:53 | XMS_ITS | Clinical Summary ---
Author Organization [facility] [address] [employer] Address [address] [place] [address] Care Team Providers Care Manager Spring Name Role Phone Tracie Persaud MD Primary Care Provider + [phone] Allergies No known active allergies Medications amLODIPine (NORVASC) 10 mg tablet 05/29/2019 Active carvediloL (COREG) 6.25 mg tablet 05/29/2019 Acti ve sertraline (ZOLOFT) 100 mg tablet 05/05/2019 Active triamterene-hydroC HLOROthiazide 37.5-25 mg per tablet 05/29/2019 Active Active Problems No known active problems Encounters Date Type Department Care Team Description 09/03/2024 10:40 AM CDT - 09/03/2024 11:59 PM CDT Hospital Encounter [facility] [address] [place] [id number] Abnormal stress test Discharge Disposition: Discharge to home or self care from Last 3 Months Surgical History Surgery Date Site/Laterality Comments HERNIA [...] drink = 0.6 oz pur e alcohol) Sex and Gender Information Value Date Recorded Sex Assigned at Not on file Legal Sex Male 7:40 AM CDT Gender Identity Not on file Sexual Orientation Not on file Obstetrics History Last Filed Vital Signs Vital Sign Reading Time Taken Comments Blood Pressure 168/56 09/03/2024 11:01 AM CDT Pulse 48 09/03/2024 11:01 AM CDT Temperature 37 C (98.6 F) 03/30/2020 3:27 PM PUMP SERVICER SUPERVISOR Respiratory Rate 17 07/03/2019 8:33 AM PUMP SERVICER SUPERVISOR Oxygen Saturation 95% 2020 11:03 AM PUMP SERVICER SUPERVISOR Inhaled Oxygen Concentration - - Weight 104.3 kg (230 lb) 03/30/2020 3:27 PM PUMP SERVICER SUPERVISOR Height 182.9 cm (6') 03/30/2020 3:27 PM PUMP SERVICER SUPERVISOR Body Mass Index 31.19 03/30/2020 3:27 PM PUMP SERVICER SUPERVISOR Plan of Treatment Health Maintenance Due Date Last Done Comments Depression Screening 1948 Fall Risk Assessment 1950 Hepatitis C Screening 1950 Hepatitis B Screening 1966 Abdominal Aortic Aneurysm (AAA) Screen 2013 Well Visit 65+ 2013 Zoster Vaccine (2 of 3) 11/12/2014 09/17/2014 Covid-19 Vaccine (3 - season) 12/30/202305/2020, 07/02/2020 DTaP/Tdap/Td Vaccine (2 - Td or Tdap) 12/23/2024 Influenza Vaccine (Season Ended) 2024 Pneumococcal vaccine 65+ Completed 12/23/2014, 12/2013 Procedures Procedure Name Priority Date/Time Associated Diagnosis Comments CT HEART MORPHOLOGY AND CORONARY ARTERIES W CONTRAST Schedule Routine, Read Routine (OP Routine) 09/03/2024 11:18 AM CDT Abnormal stress test POCT CREATININE - DEVICE Routine 09/03/2024 11:08 AM CDT from Last 3 Months Results * CTA Heart and Coronary Arteries W Morphology when Performed (09/03/2024 11:18 AM CDT) Anatomical Region Laterality Modality Chest N/A Computed Tomogra phy 09/03/2024 12:5 7 PM CDT Impressions 09/03/2024 12:57 PM CDT 1. Multivessel nonobstructive coronary artery disease. 2. Recommend aggressive medical management. Electronically signed by: MD Minnie Sanchez 09/03/2024 12:57 PM CDT EXAMINATION: CORONARY CT ANGIOGRAM HISTORY: 74-year-old male with history of hypertension and sleep apnea who is referred for CT after abnormal stress test. TECHNIQUE: CT angiography of the coronary arteries was performed after the administration of 100 mL of Optiray 350. Images were also obtained precontrast for the purposes of calcium scoring. Metoprolol was administered intravenously prior to the examination. The patient's heart rate and blood pressure at the time of the examination were 43 beats per minute. Images were transferred to a 3D workstation for additional post-processing. DLP: 1875 mGy-cm FINDINGS: The coronary arteries are co-dominant with normal origin. Right coronary system: Right coronary artery is a normal size vessel with anterior takeoff that gives off a posterior descending artery. Serial calcified plaques in the proximal and mid vessel with associated mild stenosis. Left coronary system: The left main coronary artery is a normal size vessel that bifurcates into the left anterior descending (LAD) and left circumflex (LCx) arteries. No evidence of plaque or stenosis. The left anterior descending artery is a normal size vessel with 2 diagonal branches. There is diffuse calcified plaque throughout the proximal and mid vessel with associated mild (up to 30%) stenosis. There is a mixed plaque in the distal vessel with mild stenosis. The left circumflex artery is a normal size vessel with 3 obtuse marginal branches and terminates as a posterolateral branch. There are serial mild stenoses (25-49% stenosis) with mixed calcified and noncalcified plaque in the proximal and mid vessel. In the distal vessel, there are spotty calcifications without associated stenosis. NON-CORONARY FINDINGS: Cardiac chambers: The left ventricle, right ventricle, right atrium and left atrium appear qualitatively normal in size. The left ventricular ejection fraction is normal without focal wall motion abnormality. Cardiac valves: There is mild thickening of the aortic or mitral valves. Moderate mitral annular calcification. Pericardium: The pericardial contour is preserved with no effusion, thickening or calcifications. Pulmonary veins: 2 left and 2 right sided pulmonary veins return normally to the left atrium. Great Vessels: The aorta and pulmonary artery normal caliber and visualized segments. Mild atherosclerosis of the aortic arch and descending aorta. The calculated calcium score is 327. Other findings: No significant findings. Lung deleon are within normal limits. Multilevel degenerative changes of the spine. Procedure Note Catie Marques MD - 09/03/2024 EXAMINATION: CORONARY CT ANGIOGRAM HISTORY: 74-year-old male with history of hypertension and sleep apnea who is referred for CT after abnormal stress test. TECHNIQUE: CT angiography of the coronary arteries was performed after the administration of 100 mL of Optiray 350. Images were also obtained precontrast for the purposes of calcium scoring. Metoprolol was administered intravenously prior to the examination. The patient's heart rate and blood pressure at the time of the examination were 43 beats per minute. Images were transferred to a 3D workstation for additional post-processing. DLP: 1875 mGy-cm FINDINGS: The coronary arteries are co-dominant with normal origin. Right coronary system: Right coronary artery is a normal size vessel with anterior takeoff that gives off a posterior descending artery. Serial calcified plaques in the proximal and mid vessel with associated mild stenosis. Left coronary system: The left main coronary artery is a normal size vessel that bifurcates into the left anterior descending (LAD) and left circumflex (LCx) arteries. No evidence of plaque or stenosis. The left anterior descending artery is a normal size vessel with 2 diagonal branches. There is diffuse calcified plaque throughout the proximal and mid vessel with associated mild (up to 30%) stenosis. There is a mixed plaque in the distal vessel with mild stenosis. The left circumflex artery is a normal size vessel with 3 obtuse marginal branches and terminates as a posterolateral branch. There are serial mild stenoses (25-49% stenosis) with mixed calcified and noncalcified plaque in the proximal and mid vessel. In the distal vessel, there are spotty calcifications without associated stenosis. NON-CORONARY FINDINGS: Cardiac chambers: The left ventricle, right ventricle, right atrium and left atrium appear qualitatively normal in size. The left ventricular ejection fraction is normal without focal wall motion abnormality. Cardiac valves: There is mild thickening of the aortic or mitral valves. Moderate mitral annular calcification. Pericardium: The pericardial contour is preserved with no effusion, thickening or calcifications. Pulmonary veins: 2 left and 2 right sided pulmonary veins return normally to the left atrium. Great Vessels: The aorta and pulmonary artery normal caliber and visualized segments. Mild atherosclerosis of the aortic arch and descending aorta. The calculated calcium score is 327. Other findings: No significant findings. Lung deleon are within normal limits. Multilevel degenerative changes of the spine. IMPRESSION: 1. Multivessel nonobstructive coronary artery disease. 2. Recommend aggressive medical management. Electronically signed by: Catie Marques MD Tracie Persaud MD IMG CT PROCEDURES Final Resu lt * POCT creatinine (09/03/2024 11:08 AM CDT) Creatinine POC 1.0 0.8 - 1.3 mg/dL Blood 09/03/2024 11:0 8 AM CDT 09/03/2024 11:08 AM CDT Tracie Persaud MD LAB POCT ORDERABLES - DEVICE Final Result [facility] Department [place] [address] from Last 3 Months Insurance MEDICARE [facility] MEDICARE SUPPLEMENT MEDICARE [facility] Member Subscriber Plan / Payer (Ef fective 2019-Present) Name:Benedcito Ledbetter V Relation to Subscriber:Self Name:Benedicto Ledbetter V Payer ID:[id number] Group ID:Not on file Type:COMMERCIAL Address: [facility] [id number] [place] [id number] MEDICARE [employer] MEDICARE SUPPLEMENT [employer] SENIOR SUPPLEMENT Care Teams Manager Spring Relationship Specialty Start Date End Date Tracie Persaud MD [address] [place] [address] PCP - General Internal Medicine 07/03/19
--- OUTSIDE RECORDS SUMMARY | 2024-11-06 07:53 | XMS_ITS | Referral Summary ---
Author Organization [facility] [address] [employer] Address [address] [place] [address] Care Team Providers Care Blood And Plasma Laboratory Assistant Name Role Phone Tracie Persaud MD Primary Care Provider [phone] Encounters Date Type Department Care Team Description 09/03/2024 10:40 AM CDT - 09/03/2024 11:59 PM CDT Hospital Encounter [facility] [address] [place] [address] Abnormal stress test Discharge Disposition: Discharge to home or self care from Last 3 Months Allergies No known active allergies Medications amLODIPine [...] 37 C (98.6 F) 03/30/2020 3:27 PM ANATOMIC PATHOLOGY MANAGER Respiratory Rate 17 07/03/2019 8:33 AM ANATOMIC PATHOLOGY MANAGER Oxygen Saturation 95% 2020 11:03 AM ANATOMIC PATHOLOGY MANAGER Inhaled Oxygen Concentration - - Weight 104.3 kg (230 lb) 03/30/2020 3:27 PM ANATOMIC PATHOLOGY MANAGER Height 182.9 cm (6') 03/30/2020 3:27 PM ANATOMIC PATHOLOGY MANAGER Body Mass Index 31.19 03/30/2020 3:27 PM ANATOMIC PATHOLOGY MANAGER Plan of Treatment Not on file Procedures Procedure Name Priority Date/Time Associated Diagnosis [...] LAB POCT ORDERABLES - DEVICE Final Result [facility] Department [place] [address] from Last 3 Months Insurance MEDICARE [employer] MEDICARE SUPPLEMENT MEDICARE [facility] MEDICARE [employer]) Development & Management Address: [facility] [address] [place] [address] [facility] MEDICARE SUPPLEMENT [employer] SENIOR SUPPLEMENT Care Teams Blood And Plasma Laboratory Assistant Relationship Specialty Start Date End Date Tracie Persaud MD [address] [place] [address] PCP - General Internal Medicine 07/03/19
[2024-11-06 08:03] LABS: Add Urine Microscopic? NO; Appearance Urine Clear (Clear); Glucose Urine UA Negative (Negative); Hematocrit 43.0 % (37.0-46.0); Hemoglobin 14.2 g/dL (12.4-15.3); Immature Granulocyte Percent A 0.4 % (0.0-0.0); Leukocyte Esterase Ur Negative (Negative); Lymphocytes Absolute Auto 1.13 K/mm3 (1.10-4.50); Mean Corpuscular HGB Conc 33.0 g/dL (32-36); Mean Corpuscular Hemoglobin 31.6 pg (27.0-31.0); Mean Corpuscular Volume 95.8 fL (78.0-102.0); Nitrate Urine Negative (Negative); Nucleated Red Blood Cells Absolute Auto 0.00 K/mm3 (0.00-0.00); Nucleated Red Blood Cells Perc 0.0 % (0-0.0); Platelet Count Result 202 K/mm3 (150-420); Red Blood Count 4.49 M/mm3 (4.70-6.10); Specific Grav Ur 1.025 (1.010-1.020); White Blood Count 7.7 K/mm3 (4.8-10.8)
[2024-11-06 08:15] LABS: Hemoglobin A1C 5.1 % (<5.7)
[2024-11-06 09:08] LABS: Alanine Aminotransferase 25 U/L (6-50); Albumin Level 3.5 g/dL (3.5-5.1); Alkaline Phosphatase 66 U/L (38-126); Anion Gap 5 mmol/L (4-12); Aspartate Amino Transferase 27 U/L (17-59); Bilirubin,Total 0.7 mg/dL (0.2-1.3); Blood Urea Nitrogen 18 mg/dL (9-20); Calcium 8.5 mg/dL (8.4-10.2); Carbon Dioxide 27 mmol/L (22-30); Chloride 109 mmol/L (98-107); Cholesterol 147 mg/dL (0-200); Creatine Kinase 38 U/L (55-170); Estimated Glomerular Filt Rate > 60; Glucose 88 mg/dL (65-110); HDL Direct 43 mg/dL; Magnesium 2.2 mg/dL (1.6-2.3); Osmolality Calculated 292 mOsm/kg (285-295); Potassium 3.8 mmol/L (3.4-5.0); Sodium 141 mmol/L (137-145); Total Protein 6.1 g/dL (6.3-8.2); Triglycerides 107 mg/dL (<150)
[2024-11-06 11:26] LABS: Free T4 Free Thyroxine 1.13 ng/dL (0.78-2.19)
[2024-11-06 11:40] LABS: Thyroid Stimulating Hormone 1.060 uIU/mL (0.465-4.680)
== END 2024-11-06 07:49 | disposition home or self-care (01) ==
LOC: CHSLAB 07:50
PROVIDERS: PCP Internal Medicine; Visit Provider Internal Medicine
DX: E78.2 Mixed hyperlipidemia (principal); R73.01 Impaired fasting glucose; I10 Essential (primary) hypertension; R31.21 Asymptomatic microscopic hematuria; R00.2 Palpitations
CPT/HCPCS: 36415; 80053; 80061; 81003; 82550; 83036; 83735; 84439; 84443; 85025